=== PATIENT | female | born 1990 | race Caucasian/White ===

== ENCOUNTER 2016-08-10 16:38 | Inpatient (IN) | payer BC ==
[~2016-08-10 16:38] MED LIST: Bupivacaine 0.25% 10 ML SDV ONE
[2016-08-10] MEDS ORDERED: Acetaminophen 325 MG Tab PO PRN (18:12)
[2016-08-10] MEDS ORDERED: Sodium Chloride 0.9% 10 ML Syringe FLUSH PRN (18:12)
[2016-08-10] MEDS ORDERED: Nalbuphine 20 MG/1 ML Amp IVPUSH PRN (18:12)
[2016-08-10] MEDS ORDERED: Ondansetron 4 MG/2 ML SDV IVPUSH PRN ×2 (18:12→23:12)
[2016-08-10] MEDS ORDERED: Penicillin G Potassium 5 MILLUNITS in Sodium Chloride 0.9% 100 ML IV SCH (18:15)
[2016-08-10] MEDS ORDERED: Oxytocin/Lactated Ringers 10 UNIT/1,000 ML BAG IV SCH ×2 (18:15)
--- NOTE | 2016-08-10 18:24 | PCM.LDHP ---
L&D History of Present Illness - General Date of Service: 08/10/16 Admit Problem/Dx: Patient Status Order with Admit Dx/Problem 08/10/16 18:12 Patient Status [ADT] Routine Admission Diagnosis/Problem Admission Diagnosis/Problem Normal Source of Information: Patient History Limitations: Reports: No Limitations - History of Present Illness Introduction:: 26 y/o at 40 2/7 wks presents today for concerns of labor. States that starting yesterday around 2100 had the start of contractions. They have remained every 10 minutes or so in frequency. Rates them at a 5/10. Mostly presented today to see if she is changing her cervix. Denies headaches, vision changes, or RUQ pain. 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 : 2 Para: 0 LMP (Approximate): Social & Family History - Tobacco Use Smoking Status *Q: Never Smoker - Alcohol Use Alcohol Use History: No - Recreational Drug Use Recreational Drug Use: No H&P Review of Systems - Review of Systems: Review Of Systems: See Below General: Reports: No Symptoms Pulmonary: Reports: No Symptoms Cardiovascular: Reports: No Symptoms Gastrointestinal: Reports: No Symptoms Genitourinary: Reports: No Symptoms Musculoskeletal: Reports: No Symptoms Skin: Reports: No Symptoms L&D Exam - Exam Exam: See Below - Vital Signs Weight: 71.259 kg - OB Specific Contraction Intensity: Mild to Moderate Movement: Active Heart Tones: Present Heart Tones per Min: 135 Heart Rate (FHR) Variability: Moderate (6-25 bmp) Presentation: Vertex - Tolentino Score Tolentino Score Cervix Position: Midposition Tolentino Score Consistency: Soft Tolentino Score Effacement: 51-70% Tolentino Score Dilation: 3-4 cm Tolentino Score 's Station: -2 Tolentino Score Total: 8 - Exam General: Alert, Oriented, Cooperative Lungs: Clear to Auscultation, Normal Respiratory Effort Cardiovascular: Regular Rate, Regular Rhythm Abdomen: Soft Genitourinary: Normal external exam Extremities: Normal Inspection Skin: Warm, Dry, Intact - Patient Data Lab Results Last 24 hrs: Laboratory Results - last 24 hr 08/10/16 08/10/16 Range/Units 17:50 17:50 WBC 11.47 H (3.98-10.04) K/mm3 RBC 4.32 (3.98-5.22) M/mm3 Hgb 12.2 (11.2-15.7) gm/L Hct 36.8 (34.1-44.9) % MCV 85.2 (79.4-94.8) fl MCH 28.2 (25.6-32.2) pg MCHC 33.2 (32.2-35.5) g/dl RDW Std Deviation 43.9 (36.4-46.3) fL Plt Count 233 (182-369) K/mm3 MPV 10.0 (9.4-12.3) fl Neut % (Auto) 75.5 H (34.0-71.1) % Lymph % (Auto) 17.3 L (19.3-51.7) % [place] % (Auto) 6.4 (4.7-12.5) % Eos % (Auto) 0.4 L (0.7-5.8) Baso % (Auto) 0.1 (0.1-1.2) % Neut # (Auto) 8.65 H (1.56-6.13) K/mm3 Lymph # (Auto) 1.99 (1.18-3.74) K/mm3 [place] # (Auto) 0.73 H (0.24-0.36) K/mm3 Eos # (Auto) 0.05 (0.04-0.36) K/mm3 Baso # (Auto) 0.01 (0.01-0.08) K/mm3 Creatinine 0.6 (0.55-1.02) mg/dL Est Cr Clr Drug Dosing 131.85 mL/min Estimated GFR (MDRD) > 60 (>60) mL/min AST 19 (15-37) U/L ALT 16 (14-59) U/L Result Diagrams: 08/10/16 17:50 08/10/16 17:50 - Problem List (1) 40 weeks gestation of SNOMED Code(s): 51916178 ICD Code: Z3A.40 - 40 WEEKS GESTATION OF Status: Acute Current Visit: Yes (2) Elevated blood pressure affecting in third trimester, antepartum SNOMED Code(s): 21690642, 43286176, 218638874 ICD Code: O13.3 - GESTATIONAL HTN W/O SIGNIFICANT PROTEINURIA, THIRD TRIMESTER Status: Acute Current Visit: Yes Problem List Initiated/Reviewed/Updated: Yes Orders Last 24hrs: Active Orders 24 hr Category Date Time Status Patient Status [ADT] Routine ADT 08/10/16 18:12 Ordered Activity as Tolerated [RC] PFP Care 08/10/16 18:12 Ordered Communication Order [RC] ASDIRECTED Care 08/10/16 18:12 Ordered Heart Tones [RC] ASDIRECTED Care 08/10/16 18:12 Ordered Notify Provider [RC] PFP Care 08/10/16 18:12 Ordered Notify Provider [RC] PRN Care 08/10/16 18:12 Ordered Peripheral IV Care [RC] . DIRECTED Care 08/10/16 18:12 Ordered Vital Signs [RC] PER UNIT ROUTINE Care 08/10/16 18:12 Ordered TYPE AND SCREEN [BBK] Stat Lab 08/10/16 17:50 Received Acetaminophen [Tylenol] Med 08/10/16 18:12 Ordered 650 mg PO Q4H PRN Lactated Ringers [Ringers, Lactated] 1,000 ml Med 08/10/16 18:15 Ordered IV ASDIRECTED Nalbuphine [Nubain] Med 08/10/16 18:12 Ordered 10 mg IVPUSH Q2H PRN Ondansetron [Zofran] Med 08/10/16 18:12 Ordered 4 mg IVPUSH Q4H PRN Oxytocin/Lactated Ringers [Pitocin in LR 10 Units/1,000 Med 08/10/16 18:15 Ordered ML] 10 unit in 1,000 ml IV TITRATE Oxytocin/Lactated Ringers [Pitocin in LR 10 Units/1,000 Med 08/10/16 18:15 Ordered ML] 10 unit in 1,000 ml IV TITRATE Penicillin G Potassium [Pfizerpen] 2.5 millunits Med 08/10/16 18:15 Ordered Sodium Chloride 0.9% [Normal Saline] 100 ml IV Q4H Penicillin G Potassium [Pfizerpen] 5 millunits Med 08/10/16 18:15 Ordered Sodium Chloride 0.9% [Normal Saline] 100 ml IV ONETIME Sodium Chloride 0.9% [Saline Flush] Med 08/10/16 18:12 Ordered 10 ml FLUSH ASDIRECTED PRN Electronic Heart Tones Ext w TOCO [WOMSER] Oth 08/10/16 18:12 Ordered Routine Electronic Heart Tones Internal [WOMSER] Per Unit Oth 08/10/16 18:12 Ordered Routine Peripheral IV Insertion Adult [OM.PC] Routine Oth 08/10/16 18:12 Ordered Resuscitation Status Routine Resus Stat 08/10/16 18:12 Ordered Assessment/Plan Comment:: 26 y/o at 40 2/7 wks presents with concerns of early labor, found to have elevated BP's in the mild range. Discussed with patient and her needing to stay for IOL due to BP's. Will start with pitocin and then move on to AROM as necessary. AST, ALT, Creatinine, CBC, and UA ordered. Will monitor for signs of worsening disease. GBS positive, will start PCN. Pain management per patient preference. Anticipate
[2016-08-10] MEDS: Lactated Ringers 1,000 ML IV SCH (18:50)
[2016-08-10] MEDS ORDERED: Calcium Gluconate 10% 1 GM/10 ML SDV IV PRN (20:23)
[2016-08-10] MEDS ORDERED: ePHEDrine 50 MG/ML SDV IVPUSH PRN (23:12)
[2016-08-10] MEDS ORDERED: fentaNYL 100 MCG/2 ML SDV EPIDUR PRN (23:12)
[2016-08-10] MEDS: Penicillin G Potassium 2.5 MILLUNITS in Sodium Chloride 0.9% 100 ML IV SCH (23:12)
[2016-08-10] MEDS ORDERED: Bupivacaine/fentaNYL/NS 100 ML Bag EPIDUR SCH (23:15)
--- NOTE | 2016-08-10 23:31 | PCM.PREANE ---
Preanesthetic Assessment - Anesthesia/Transfusion/Family Hx Anesthesia History: No Prior Anesthesia Family History of Anesthesia Reaction: No Transfusion History: No Prior Transfusion(s) Intubation History: Unknown - Review of Systems General: No Symptoms Pulmonary: No Symptoms Cardiovascular: No Symptoms Gastrointestinal: No symptoms Neurological: No Symptoms Other: Reports: None - Physical Assessment NPO Status Date: 08/10/16 NPO Status Time: 19:30 Pulse: 77 O2 Sat by Pulse Oximetry: 100 Respiratory Rate: 17 Blood Pressure: 141/86 Temperature: 2.9 C Vital Signs: Last Vital Signs Temp 37.2 C 08/10/16 18:12 Pulse 77 08/10/16 18:12 Resp 17 08/10/16 18:12 BP 141/86 H 08/10/16 18:12 Pulse Ox 100 08/10/16 18:12 Height: 1.68 m Weight: 71.259 kg ASA Class: 2 Mental Status: Alert & Oriented x3 Airway Class: Mallampati = 2 Dentition: Reports: Normal Dentition, Caries Thyro-Mental Finger Breadths: 3 Mouth Opening Finger Breadths: 3 ROM/Head Extension: Full Lungs: Clear to auscultation, Normal respiratory effort Cardiovascular: Regular Rate, Regular Rhythm, No Murmurs - Lab Values: Laboratory Last Values WBC 11.47 K/mm3 (3.98-10.04) H 08/10/16 17:50 RBC 4.32 M/mm3 (3.98-5.22) 08/10/16 17:50 Hgb 12.2 gm/L (11.2-15.7) 08/10/16 17:50 Hct 36.8 % (34.1-44.9) 08/10/16 17:50 MCV 85.2 fl (79.4-94.8) 08/10/16 17:50 MCH 28.2 pg (25.6-32.2) 08/10/16 17:50 MCHC 33.2 g/dl (32.2-35.5) 08/10/16 17:50 RDW Std Deviation 43.9 fL (36.4-46.3) 08/10/16 17:50 Plt Count 233 K/mm3 (182-369) 08/10/16 17:50 MPV 10.0 fl (9.4-12.3) 08/10/16 17:50 Neut % (Auto) 75.5 % (34.0-71.1) H 08/10/16 17:50 Lymph % (Auto) 17.3 % (19.3-51.7) L 08/10/16 17:50 [place] % (Auto) 6.4 % (4.7-12.5) 08/10/16 17:50 Eos % (Auto) 0.4 (0.7-5.8) L 08/10/16 17:50 Baso % (Auto) 0.1 % (0.1-1.2) 08/10/16 17:50 Neut # (Auto) 8.65 K/mm3 (1.56-6.13) H 08/10/16 17:50 Lymph # (Auto) 1.99 K/mm3 (1.18-3.74) 08/10/16 17:50 [place] # (Auto) 0.73 K/mm3 (0.24-0.36) H 08/10/16 17:50 Eos # (Auto) 0.05 K/mm3 (0.04-0.36) 08/10/16 17:50 Baso # (Auto) 0.01 K/mm3 (0.01-0.08) 08/10/16 17:50 Creatinine 0.6 mg/dL (0.55-1.02) 08/10/16 17:50 Est Cr Clr Drug Dosing 131.85 mL/min 08/10/16 17:50 Estimated GFR (MDRD) > 60 mL/min (>60) 08/10/16 17:50 AST 19 U/L (15-37) 08/10/16 17:50 ALT 16 U/L (14-59) 08/10/16 17:50 Urine Color Yellow (Yellow) 08/10/16 21:10 Urine Appearance Clear (Clear) 08/10/16 21:10 Urine pH 6.0 (5.0-8.0) 08/10/16 21:10 Ur Specific [place] 1.025 (1.005-1.030) 08/10/16 21:10 Urine Protein Trace (Negative) H 08/10/16 21:10 Urine Glucose (UA) Negative (Negative) 08/10/16 21:10 Urine Ketones 2+ (Negative) H 08/10/16 21:10 Urine Occult Blood 3+ (Negative) H 08/10/16 21:10 Urine Nitrite Negative (Negative) 08/10/16 21:10 Urine Bilirubin Negative (Negative) 08/10/16 21:10 Urine Urobilinogen 0.2 (0.2-1.0) 08/10/16 21:10 Ur Leukocyte Esterase 1+ (Negative) H 08/10/16 21:10 Urine RBC 10-20 /hpf (0-5) H 08/10/16 21:10 Urine WBC 5-10 /hpf (0-5) H 08/10/16 21:10 Ur Epithelial Cells Not Reportable 08/10/16 21:10 Ur Squamous Epith Cells 0-5 /hpf (0-5) 08/10/16 21:10 Urine Bacteria Few /hpf (FEW) 08/10/16 21:10 Urine Mucus Few /hpf (FEW) 08/10/16 21:10 Blood Type B POSITIVE 08/10/16 17:50 Gel Antibody Screen Negative 08/10/16 17:50 Above labs reviewed and noted. 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 - SUBSTANCE USE Smoking Status *Q: Never Smoker Recreational Drug Use History: No - HOME MEDS Home Medications: Home Meds Vit W-Ca,Fe,FA(<1 mg) [ Vitamins] 1 tab PO DAILY 08/10/16 [ History] - CURRENT (IN HOUSE) MEDS Current Meds: Current Medications Acetaminophen (Tylenol) 650 mg PO Q4H PRN PRN Reason: Pain (Mild 1-3) and fever Calcium Gluconate (Calcium Gluconate) 1 gm IV ASDIRECTED PRN PRN Reason: respiratory distress Ephedrine Sulfate (Ephedrine Sulfate) 5 mg IVPUSH ASDIRECTED PRN PRN Reason: Hypotension Fentanyl (Sublimaze) 100 mcg EPIDUR Q3H PRN PRN Reason: Pain Fentanyl/Bupivacaine HCl (Fentanyl/Bupivacaine/Ns 2 Mcg-0.125% 100 Ml) 100 ml EPIDUR ASDIRECTED RICK Lactated Ringer's (Ringers, Lactated) 1,000 mls @ 100 mls/hr IV ASDIRECTED RICK Last Admin: 08/10/16 18:50 Dose: 100 mls/hr Oxytocin/Lactated Ringer's (Pitocin In Lr 10 Units/1,000 Ml) 10 unit in 1,000 mls @ 500 mls/hr IV TITRATE RICK PRN Reason: Protocol Oxytocin/Lactated Ringer's (Pitocin In Lr 10 Units/1,000 Ml) 10 unit in 1,000 mls @ 12 mls/hr IV TITRATE RICK; 2 MUNITS/MIN PRN Reason: Protocol Last Titration: 08/10/16 23:13 Dose: 0 munits/min, 0 mls/hr Penicillin G Potassium 5 (millunits/ Sodium Chloride) 100 mls @ 55 mls/hr IV ONETIME [facility] Last Admin: 08/10/16 18:55 Dose: 55 mls/hr Penicillin G Potassium 2.5 (millunits/ Sodium Chloride) 100 mls @ 55 mls/hr IV Q4H RICK Last Admin: 08/10/16 23:12 Dose: 55 mls/hr Nalbuphine HCl (Nubain) 10 mg IVPUSH Q2H PRN PRN Reason: Pain (moderate 4-6) Ondansetron HCl (Zofran) 4 mg IVPUSH Q4H PRN PRN Reason: Nausea/Vomiting Ondansetron HCl (Zofran) 4 mg IVPUSH ONETIME PRN PRN Reason: Nausea/Vomiting Sodium Chloride (Saline Flush) 10 ml FLUSH ASDIRECTED PRN PRN Reason: Keep Vein Open
[2016-08-11] MEDS: Lactated Ringers 1,000 ML IV SCH ×2 (01:15→04:59)
[2016-08-11] MEDS: Penicillin G Potassium 2.5 MILLUNITS in Sodium Chloride 0.9% 100 ML IV SCH ×4 (04:29→14:37)
[2016-08-11] MEDS ORDERED: Lidocaine 1% 50 ML MDV ONE (08:48)
[2016-08-11] MEDS ORDERED: Lidocaine 1% 50 ML MDV INJECT PRN (08:48)
[2016-08-11] MEDS ORDERED: Benzocaine/Menthol 20%-0.5% Spray 56 GM Canister TOP PRN ×2 (11:11→14:23)
[2016-08-11] MEDS ORDERED: Witch Hazel Medicated Pads 100/Jar TOP PRN ×2 (11:11→14:23)
--- NOTE | 2016-08-11 13:25 | PCM.SN ---
- Free Text/Narrative Note: Suma delivered a viable 3510 gram (7# 11.8 oz) female with apgars of 8/9 , length of 21.5 inches in a persistant LOP position with vacuum extraction. Midline episiotomy was performed, but no extensions occurred. Lidocaine 1%-10 cc was injected for anesthesia. The episiotomy was repaired with 3-0 monocryl in a routine fashion. Placenta delivered in a matilde fashion, was complete and had a 3 vessel cord. Pitocin was adminstered after delivery of the baby. Placenta was discarded. Patient plans to nurse. Conditon: good. EBL: 100cc
[2016-08-11] MEDS ORDERED: Hydrocortisone Acetate 25 MG Supp RECTAL PRN (14:23)
[2016-08-11] MEDS ORDERED: Lanolin 100% Cream 7 GM Tube TOP PRN (14:23)
[2016-08-11] MEDS ORDERED: Acetaminophen 325 MG Tab PO PRN (14:23)
[2016-08-11] MEDS ORDERED: Docusate Sodium 100 MG Cap PO PRN (14:23)
[2016-08-11] MEDS: Ibuprofen 600 MG Tab PO PRN (20:02)
--- NOTE | 2016-08-12 08:10 | PCM48HPAN ---
Post Anesthesia Note - EVALUATION WITHIN 48HRS OF ANESTHETIC Vital Signs in Normal Range: Yes Patient Participated in Evaluation: Yes Respiratory Function Stable: Yes Airway Patent: Yes Cardiovascular Function Stable: Yes Hydration Status Stable: Yes Pain Control Satisfactory: Yes Nausea and Vomiting Control Satisfactory: Yes Mental Status Recovered: Yes
--- NOTE | 2016-08-12 09:25 | PCM.DCSUM1 ---
Discharge Summary - Hospital Course Free Text/Narrative:: Suma delivered a viable 3510 gram (7# 11.8 oz) female with apgars of 8/9 , length of 21.5 inches in a persistant LOP position with vacuum extraction. Midline episiotomy was performed, but no extensions occurred. Lidocaine 1%-10 cc was injected for anesthesia. The episiotomy was repaired with 3-0 monocryl in a routine fashion. Placenta delivered in a matilde fashion, was complete and had a 3 vessel cord. Pitocin was adminstered after delivery of the baby. Placenta was discarded. Patient plans to nurse. Conditon: good. EBL: 100cc patient is done well. She is nursing with a breast shield. This is somewhat challenging for her but she is doing well. She is invested in this. She is ambulating well, has no complaints and has only minimal lochia. Her vital signs and stable and she is afebrile. CBC is within normal limits. Patient is desiring discharge home. - Discharge Data Discharge Date: 08/12/16 Discharge Disposition: Home, Self-Care 01 Condition: Good - Patient Instructions Diet: Regular Diet as Tolerated (Nursing diet was increased calcium and calories as recommended) Activity: As Tolerated (With the exception no intercourse or tampons until bleeding resolves) Driving: May Drive Today Showering/Bathing: May Shower (May take a bath) Notify Provider of: Fever, Increased Pain, Swelling and Redness, Nausea and/or Vomiting - Discharge Plan Home Medications: Home Meds Vit W-Ca,Fe,FA(<1 mg) [ Vitamins] 1 tab PO DAILY 08/10/16 [ History] Ibuprofen [IJD: Ibuprofen] 600 mg PO Q4H PRN #30 tablet 08/12/16 [Rx] Referrals: Denys Ahuja MD [Primary Care Provider] - [facility] - Discharge Summary/Plan Comment DC Time >30 min.: No Discharge Summary/Plan Comment: Discharge instructions: 1. Discharge home 2. Regular, high fiber, nursing diet was increased calcium and calories as directed. 3. Precautions given concern increased pain, bleeding, temperature, signs/ symptoms of DVT/PE 4. Medications per medication was printed, discussed with and given to the patient. 5. Return to clinic-Dr. Ahuja-[facility]-6 weeks-[place] Diagnosis: Term -delivered Condition: Good - Patient Data Vitals - Most Recent: Last Vital Signs Temp 36.9 C 08/11/16 19:45 Pulse 84 08/12/16 04:00 Resp 18 08/12/16 04:00 BP 96/59 L 08/12/16 04:00 Pulse Ox 100 08/12/16 04:00 Weight - Most Recent: 71.259 kg Med Orders - Current: Current Medications Acetaminophen (Tylenol) 650 mg PO Q4H PRN PRN Reason: mild pain or fever Benzocaine/Menthol (Dermoplast Pain Relief [place]) 0 gm TOP ASDIRECTED PRN PRN Reason: Perineal Comfort Measure Docusate Sodium (Colace) 100 mg PO BID PRN PRN Reason: Constipation Emollient Ointment (Lansinoh Hpa) 0 gm TOP ASDIRECTED PRN PRN Reason: Sore Nipples Hydrocortisone Acetate (Anucort-Hc) 25 mg RECTAL BID PRN PRN Reason: Hemorrhoid pain Ibuprofen (Motrin) 600 mg PO Q4H PRN PRN Reason: Mild pain or fever Last Admin: 08/11/16 20:02 Dose: 600 mg [place] (Tucks) 1 pad TOP ASDIRECTED PRN PRN Reason: Hemorrhoid pain Discontinued Medications Acetaminophen (Tylenol) 650 mg PO Q4H PRN PRN Reason: Pain (Mild 1-3) and fever Benzocaine/Menthol (Dermoplast Pain Relief [place]) 0 gm TOP ASDIRECTED PRN PRN Reason: perineal pain Bupivacaine HCl (Sensorcaine-Mpf 0.25%) 10 ml .ROUTE .STK-MED ONE Stop: 08/10/16 14:24 Calcium Gluconate (Calcium Gluconate) 1 gm IV ASDIRECTED PRN PRN Reason: respiratory distress Ephedrine Sulfate (Ephedrine Sulfate) 5 mg IVPUSH ASDIRECTED PRN PRN Reason: Hypotension Fentanyl (Sublimaze) 100 mcg EPIDUR Q3H PRN PRN Reason: Pain Last Admin: 08/11/16 00:01 Dose: 100 mcg Fentanyl/Bupivacaine HCl (Fentanyl/Bupivacaine/Ns 2 Mcg-0.125% 100 Ml) 100 ml EPIDUR ASDIRECTED RICK Last Admin: 08/11/16 00:01 Dose: 100 ml Lactated Ringer's (Ringers, Lactated) 1,000 mls @ 100 mls/hr IV ASDIRECTED RICK Last Admin: 08/11/16 04:59 Dose: 100 mls/hr Oxytocin/Lactated Ringer's (Pitocin In Lr 10 Units/1,000 Ml) 10 unit in 1,000 mls @ 500 mls/hr IV TITRATE RICK PRN Reason: Protocol Oxytocin/Lactated Ringer's (Pitocin In Lr 10 Units/1,000 Ml) 10 unit in 1,000 mls @ 12 mls/hr IV TITRATE RICK; 2 MUNITS/MIN PRN Reason: Protocol Last Titration: 08/11/16 08:35 Dose: 1 munits/min, 6 mls/hr Penicillin G Potassium 5 (millunits/ Sodium Chloride) 100 mls @ 55 mls/hr IV ONETIME RICK Last Admin: 08/10/16 18:55 Dose: 55 mls/hr Penicillin G Potassium 2.5 (millunits/ Sodium Chloride) 100 mls @ 55 mls/hr IV Q4H RICK Last Admin: 08/11/16 14:37 Dose: Not Given Lidocaine HCl (Xylocaine 1%) Confirm Administered Dose 50 ml .ROUTE .[facility] ONE Stop: 08/11/16 08:49 Last Admin: 08/11/16 10:48 Dose: Not Given Lidocaine HCl (Xylocaine 1%) 50 ml INJECT ONETIME PRN PRN Reason: perineal pain Last Admin: 08/11/16 09:00 Dose: 50 ml Nalbuphine HCl (Nubain) 10 mg IVPUSH Q2H PRN PRN Reason: Pain (moderate 4-6) Ondansetron HCl (Zofran) 4 mg IVPUSH Q4H PRN PRN Reason: Nausea/Vomiting Ondansetron HCl (Zofran) 4 mg IVPUSH ONETIME PRN PRN Reason: Nausea/Vomiting Sodium Chloride (Saline Flush) 10 ml FLUSH ASDIRECTED PRN PRN Reason: Keep Vein Open [place] (Tucks) 1 pad TOP ASDIRECTED PRN PRN Reason: perineal pain *Q Meaningful Use (DIS) - VTE *Q VTE Criteria *Q: - Stroke *Q Stroke Criteria *Q: - AMI *Q AMI Criteria *Q:
[2016-08-12] MEDS: Ibuprofen 600 MG Tab PO PRN (09:40)
[2016-08-12 11:17] VITALS: BP 110/62
== END 2016-08-12 15:00 | disposition home or self-care (01) | DRG 560 ==
LOC: JD.OBCHECK 16:38 → JD.OB 18:12 → OBSVTOIN 08-11 09:02
PROVIDERS: ADMIT Obstetrics & Gynecology; ATTEND Obstetrics & Gynecology
PROC: 0W8NXZZ Division of Female Perineum, External Approach (ICD-10-PCS; principal; 2016-08-11)
PROC: 10D07Z6 Extraction of Products of Conception, Vacuum, Via Natural or Artificial Opening (ICD-10-PCS; principal; 2016-08-11)
PROC: 3E0R3CZ (ICD-10-PCS; 2016-08-11)
DX: O99.824 Streptococcus B carrier state complicating childbirth (principal); O13.3 Gestational [pregnancy-induced] hypertension without significant proteinuria, third trimester; Z3A.40 40 weeks gestation of pregnancy; Z37.0 Single live birth
CPT/HCPCS: 36415; 81001; 82565; 84450; 84460; 85025; 85027; 86850; 86900; 86901; A9270-GY; J2540; J2590; J3010; J7030; J7120

== ENCOUNTER 2018-07-05 03:58 | Inpatient (IN) | payer BC ==
[2018-07-05] MEDS ORDERED: Sodium Chloride 0.9% 10 ML Syringe FLUSH PRN (19:19)
[2018-07-05] MEDS ORDERED: Nalbuphine 20 MG/ML 1 ML Syringe IVPUSH PRN (19:19)
[2018-07-05] MEDS ORDERED: Ondansetron 4 MG/2 ML SDV IVPUSH PRN (19:19)
[2018-07-05] MEDS ORDERED: Oxytocin/Lactated Ringers 10 UNIT/1,000 ML BAG IV SCH ×2 (19:30)
--- NOTE | 2018-07-05 21:06 | PCM.LDHP ---
L&D History of Present Illness - General Date of Service: 07/05/18 Admit Problem/Dx: Patient Status Order with Admit Dx/Problem 07/05/18 19:19 Patient Status [ADT] Routine Admission Diagnosis/Problem Admission Diagnosis/Problem 07/05/18 20:54 Suma is a 28-year-old 3 para 1011 white female was admitted for medical induction of labor for transient hypertension in . She is 38-3/7 weeks gestational age as determined by certain last menstrual period started 2017 and supported by 3 other ultrasounds done on 01/07/2018 03/04/2018 and 2018. Source of Information: Patient History Limitations: Reports: No Limitations - History of Present Illness Introduction:: Suma is a 28-year-old 3 para 1011 white female was admitted for medical induction of labor for transient hypertension in . She is 38-3/7 weeks gestational age as determined by certain last menstrual period started 2017 and supported by 3 other ultrasounds done on 01/07/2018 03/04/2018 and 2018.She's been seen on a regular basis during the course of in the last 2 visits patient has had blood pressures in the 140s to 150s over 80-90 range. She is monitored them at home and reports that they've been upper limits normal. She, however, in clinic has been noted to have elevated blood pressures. Her preeclampsia workup has been unremarkable. The procedure of induction of labor, its risks, benefits and alternatives along with follow-up were discussed in detail patient. She appears understand and wishes to proceed. 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 CARRIE 07/16/2018 by LMP starting 10/09/2017. Patient had menarche at age 11. Cycles every 28 days. No control time conception. Last period was definite. Her first 2 pregnancies included the followin. Miscarriage, first trimester, 07/25/2015. Female infant born 08/11/2016 at 40-3/7 weeks gestational age. 24-hour labor. Epidural used. Baby's name is Jorge Luis De León This patient was seen early at 12 weeks gestational age. She was seen on a regular basis. Her weight gain was from 125-150 pounds. Fundal height growth was at appropriate. Patient had no concerns throughout the . Her 1 hour glucose tolerance test was 131. She declined genetic testing. She declined [place] testing. Echogenic intracardiac focus of ultrasound was noted. [place] depression screening score on 03/10/2018 was 0/ 30. Group B strep negative. Plans to breast-feed. T Dap was given on 05/13/2018. Laboratory testing and shows blood to be positive. Antibody screen is negative. First trimester hemoglobin was 13.6 g/dL. Eyelids are 267,000. She is rubella immune. RPR is nonreactive. Urine culture was essentially negative. Hepatitis B surface antigen and HIV assays were both negative. Chlamydia and gonorrhea tests were both negative. Cystic fibrosis screen on 01/15/2016 was negative. Second trimester labs showed hemoglobin of 11.2 g/dL. Her platelets are 253,001 hour GTT. On 06/24/2018 hemoglobin 11.4 RPR 04/08/2018. Again was nonreactive. Group B strep screen was negative. Allergies: none Medications: vitamins 1 daily Past medical history: 1. Miscarriage first trimester 2. Normal spontaneous vaginal delivery 08/11/2016 Past surgical history: Unremarkable Family history: Mother is alive and well. Father is alive and well. 2 brothers 1 sister alive and well. Maternal grandmother and grandfather both alive and well. Maternal grandmother alive with history of breast cancer paternal grandfather secondary to CHF. No bleeding or blood clotting abnormalities noted found. No anesthesia problems noted. 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 She does not use any significant muscle L call, drugs or tobacco. 's name is Milind Keith Review of systems: In general patient has no complaints. Baby has been active. No significant contractions reported. Skin: Negative Lungs: No infectious symptoms or shortness of breath Cardiovascular: No chest pain or exercise intolerance Breasts: No lumps, changes in size, pain, dimpling, discharge or axillary or supraclavicular concerns. GI: Negative : Changes associated Musculoskeletal: Negative Neurological: Negative On physical exam last visit in clinic her blood pressure is 150/82, 146/80, 132/ 74. Weight was 150 pounds. heart rate was 136. Height is 5 feet. Pregravid weight was 125. Pre- BMI was 20.2. In general the patient is well-developed, well-nourished, pleasant female of stated age in no acute distress. Skin is warm dry without lesions. HEENT, neck and back within normal limits. Lungs are clear with good breath sounds in all lung nix. Cardiovascular exam shows regular and rhythm without murmurs. Breast exam deferred Abdomen is gravid. Last fundal height clinic was 37 cm. Baby in vertex presentation Genital per bimanual shows normal external genitalia, BUS, pubic hair pattern. There is normal support, secretions and estrogenization vagina. Cervix was 2+ centimeters, 80% effaced, very soft, mid position to mildly posterior position, -3 station, cephalic presentation. Extremities and neurological exam are grossly within normal limits. 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 - Infectious Disease History Infectious Disease History: Reports: Chicken Pox Social & Family History - Family History Family Medical History: Noncontributory - Tobacco Use Smoking Status *Q: Never Smoker - Caffeine Use Caffeine Use: Reports: None - Recreational Drug Use Recreational Drug Use: No H&P Review of Systems - Review of Systems: Review Of Systems: See Below L&D Exam - Exam Exam: See Below - Vital Signs Vital Signs: Last Vital Signs Temp 36.8 C 07/05/18 19:11 Pulse 81 07/05/18 19:11 Resp 18 07/05/18 19:11 BP 125/83 07/05/18 19:11 Pulse Ox Weight: 68.674 kg - Patient Data Lab Results Last 24 hrs: Laboratory Results - last 24 hr 07/05/18 Range/Units 19:34 WBC 9.60 (3.98-10.04) K/mm3 RBC 4.02 (3.98-5.22) M/mm3 Hgb 10.9 L (11.2-15.7) gm/L Hct 33.8 L (34.1-44.9) % MCV 84.1 (79.4-94.8) fl MCH 27.1 (25.6-32.2) pg MCHC 32.2 (32.2-35.5) g/dl RDW Std Deviation 43.2 (36.4-46.3) fL Plt Count 246 (182-369) K/mm3 MPV 10.0 (9.4-12.3) fl Result Diagrams: 07/05/18 19:34 Problem List Initiated/Reviewed/Updated: Yes Orders Last 24hrs: Active Orders 24 hr Category Date Time Status Patient Status [ADT] Routine ADT 07/05/18 19:19 Active Activity as Tolerated [RC] PFP Care 07/05/18 19:19 Active Communication Order [RC] ASDIRECTED Care 07/05/18 19:19 Active Heart Tones [RC] ASDIRECTED Care 07/05/18 19:19 Active Non Stress Test [RC] PER UNIT ROUTINE Care 07/05/18 19:19 Active Notify Provider [RC] PFP Care 07/05/18 19:19 Active Notify Provider [RC] PRN Care 07/05/18 19:19 Active Peripheral IV Care [RC] . DIRECTED Care 07/05/18 19:19 Active Vital Signs [RC] PER UNIT ROUTINE Care 07/05/18 19:19 Active Regular Diet [DIET] Diet 07/05/18 Breakfast Active RAPID PLASMA REAGIN,RPR [CHEM] Routine Lab 07/05/18 19:34 Received Lactated Ringers [Ringers, Lactated] 1,000 ml Med 07/05/18 19:30 Active IV ASDIRECTED Nalbuphine [Nubain] Med 07/05/18 19:19 Active 10 mg IVPUSH Q2H PRN Ondansetron [Zofran] Med 07/05/18 19:19 Active 4 mg IVPUSH Q4H PRN Oxytocin/Lactated Ringers [Pitocin in LR 10 Units/1,000 Med 07/05/18 19:30 Active ML] 10 unit in 1,000 ml IV .CONTINUOUS Oxytocin/Lactated Ringers [Pitocin in LR 10 Units/1,000 Med 07/05/18 19:30 Active ML] 10 unit in 1,000 ml IV TITRATE Sodium Chloride 0.9% [Saline Flush] Med 07/05/18 19:19 Active 10 ml FLUSH ASDIRECTED PRN Electronic Heart Tones Ext w TOCO [WOMSER] Ot 07/05/18 19:19 Ordered Routine Electronic Heart Tones Internal [WOMSER] Per Unit Ot 07/05/18 19:19 Ordered Routine Peripheral IV Insertion Adult [OM.PC] Routine Oth 07/05/18 19:19 Ordered Resuscitation Status Routine Resus Stat 07/05/18 19:19 Ordered Medication Orders Lactated Ringer's (Ringers, Lactated) 1,000 mls @ 100 mls/hr IV ASDIRECTED RICK Oxytocin/Lactated Ringer's (Pitocin In Lr 10 Units/1,000 Ml) 10 unit in 1,000 mls @ 12 mls/hr IV TITRATE RICK; Protocol Oxytocin/Lactated Ringer's (Pitocin In Lr 10 Units/1,000 Ml) 10 unit in 1,000 mls @ 500 mls/hr IV .CONTINUOUS RICK Nalbuphine HCl (Nubain) 10 mg IVPUSH Q2H PRN PRN Reason: pain Ondansetron HCl (Zofran) 4 mg IVPUSH Q4H PRN PRN Reason: Nausea/Vomiting Sodium Chloride (Saline Flush) 10 ml FLUSH ASDIRECTED PRN PRN Reason: Keep Vein Open Assessment/Plan Comment:: 1. 30-3/7 week intrauterine , transient hypertension in versus gestational hypertension. Patient admitted for medical induction of labor. 2. Group B strep screen was negative. 3. T dap has been given. 4. Patient plans to breast-feed. 5. Epidural for labor and analgesia. 6. Only risk factors include echogenic focus within the heart and history of miscarriagepatient declined [place] testing 7. Patient is rubella immune and has had her T dap immunization 8. Previously done cystic fibrosis screen (2015) was negative Plan: 1. AROM/Pitocin induction of labor. 2. Epidural when necessary for pain 3. RPR and CBC upon admission 4. Patient plans to breast-feedsupport this decision
[2018-07-05] MEDS: Lactated Ringers 1,000 ML IV SCH (21:40)
[2018-07-05] MEDS ORDERED: Bupivacaine 0.25% 10 ML SDV ONE (22:00)
[2018-07-06] MEDS ORDERED: ePHEDrine 50 MG/ML SDV IVPUSH PRN (00:20)
[2018-07-06] MEDS ORDERED: diphenhydrAMINE 50 MG/ML SDV IVPUSH PRN (00:20)
[2018-07-06] MEDS ORDERED: fentaNYL 100 MCG/2 ML SDV IVPUSH ONE (00:28)
[2018-07-06] MEDS ORDERED: Bupivacaine/fentaNYL/NS 100 ML Bag EPIDUR SCH (00:30)
[2018-07-06] MEDS: Lactated Ringers 1,000 ML IV SCH ×2 (00:46→02:16)
--- NOTE | 2018-07-06 01:11 | PCM.PREANE ---
Preanesthetic Assessment - Anesthesia/Transfusion/Family Hx Anesthesia History: Prior Anesthesia Without Reaction Family History of Anesthesia Reaction: No Transfusion History: No Prior Transfusion(s) Intubation History: Unknown - Review of Systems General: No Symptoms Pulmonary: No Symptoms Cardiovascular: No Symptoms Gastrointestinal: No Symptoms Neurological: No Symptoms Other: Reports: None - Physical Assessment Respiratory Rate: 18 Vital Signs: Last Vital Signs Temp 36.8 C 07/05/18 19:11 Pulse 81 07/05/18 19:11 Resp 18 07/05/18 19:11 BP 125/83 07/05/18 19:11 Pulse Ox Height: 1.68 m Weight: 68.674 kg ASA Class: 1E Mental Status: Alert & Oriented x3 Airway Class: Mallampati = 1 Dentition: Reports: Normal Dentition ROM/Head Extension: Full Lungs: Clear to Auscultation, Normal Respiratory Effort Cardiovascular: Regular Rate, Regular Rhythm, No Murmurs - Lab Values: Laboratory Last Values WBC 9.60 K/mm3 (3.98-10.04) 07/05/18 19:34 RBC 4.02 M/mm3 (3.98-5.22) 07/05/18 19:34 Hgb 10.9 gm/L (11.2-15.7) L 07/05/18 19:34 Hct 33.8 % (34.1-44.9) L 07/05/18 19:34 MCV 84.1 fl (79.4-94.8) 07/05/18 19:34 MCH 27.1 pg (25.6-32.2) 07/05/18 19:34 MCHC 32.2 g/dl (32.2-35.5) 07/05/18 19:34 RDW Std Deviation 43.2 fL (36.4-46.3) 07/05/18 19:34 Plt Count 246 K/mm3 (182-369) 07/05/18 19:34 MPV 10.0 fl (9.4-12.3) 07/05/18 19:34 - Allergies Allergies/Adverse Reactions: Allergies Allergy/AdvReac Type Severity Reaction Status Date / Time No Known Allergies Allergy Verified 07/05/18 20:10 - Anesthesia Plan Pre-Op Medication Ordered: None - Acknowledgements Anesthesia Type Planned: Epidural Pt an Appropriate Candidate for the Planned Anesthesia: Yes Alternatives and Risks of Anesthesia Discussed w Pt/Guardian: Yes Pt/Guardian Understands and Agrees with Anesthesia Plan: Yes PreAnesthesia Questionnaire - Past Health History Medical/Surgical History: Denies 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: , 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 - Infectious Disease History Infectious Disease History: Reports: Chicken Pox - SUBSTANCE USE Smoking Status *Q: Never Smoker Recreational Drug Use History: No - HOME MEDS Home Medications: Home Meds Vit Calc,Iron,Folic [ Vitamins] 1 tab PO DAILY 08/10/16 [ History] - CURRENT (IN HOUSE) MEDS Current Meds: Current Medications Diphenhydramine HCl (Benadryl) 25 mg IVPUSH Q6H PRN PRN Reason: Pruritis Ephedrine Sulfate (Ephedrine Sulfate) 5 mg IVPUSH ONETIME PRN PRN Reason: Hypotension Fentanyl/Bupivacaine HCl (Fentanyl/Bupivacaine/Ns 2 Mcg-0.125% 100 Ml) 100 ml EPIDUR ASDIRECTED RICK Lactated Ringer's (Ringers, Lactated) 1,000 mls @ 100 mls/hr IV ASDIRECTED RICK Last Admin: 07/06/18 00:46 Dose: 100 mls/hr Oxytocin/Lactated Ringer's (Pitocin In Lr 10 Units/1,000 Ml) 10 unit in 1,000 mls @ 12 mls/hr IV TITRATE RICK; Protocol Last Titration: 07/05/18 23:54 Dose: 8 munits/min, 48 mls/hr Oxytocin/Lactated Ringer's (Pitocin In Lr 10 Units/1,000 Ml) 10 unit in 1,000 mls @ 500 mls/hr IV .CONTINUOUS RICK Nalbuphine HCl (Nubain) 10 mg IVPUSH Q2H PRN PRN Reason: pain Ondansetron HCl (Zofran) 4 mg IVPUSH Q4H PRN PRN Reason: Nausea/Vomiting Sodium Chloride (Saline Flush) 10 ml FLUSH ASDIRECTED PRN PRN Reason: Keep Vein Open Discontinued Medications Fentanyl (Sublimaze) 100 mcg IVPUSH ONETIME ONE Stop: 07/06/18 00:29
--- NOTE | 2018-07-06 01:12 | PCM.POSTAN ---
POST ANESTHESIA ASSESSMENT - MENTAL STATUS Mental Status: Alert - RESPIRATORY Respiratory Status: Respiratory Rate WNL, Airway Patent - CARDIOVASCULAR CV Status: Pulse Rate WNL, Blood Pressure Stable - GASTROINTESTINAL GI Status: No Symptoms - POST OP HYDRATION Hydration Status: Adequate & Stable
--- NOTE | 2018-07-06 04:27 | PCM.SN ---
- Free Text/Narrative Note: Suma is a 28-year-old 3 now para 2012 white female who was admitted on the evening of 07/06/2018 at 38-3/7 weeks gestational age for hypertension in . She underwent medical induction for this. She did have an elevated blood pressures on last 2 evaluations in clinic in the 150s over 80s to 90s range. Decision was made to proceed with medical induction to effect delivery. Induction consisted of artificial rupture membranes with Pitocin augmentation added later. Patient made good progress at approximately 0100 hrs. had an epidural placed for analgesia. She progressed to complete cervical dilation by approximately 0340 hrs. on 07/06/2018. 2 contractions delivered a viable, grimes, male in a left occiput anterior position. The baby weighed 3203 g (7 pounds 1.9 ounces), had Apgars of 8 and 9 and length of 20.0 inches. There was nuchal cord 1 which was reduced easily over the baby's head. Dose was started immediately after the baby's head delivered and run at 500 mL per hour. This to facilitate increase uterine tone and decrease likelihood of bleeding. The cord blood was obtained. The Umbilical cord had 3 vessels The placenta delivered in a Florez presentation, appeared intact and complete and was discarded per patient desire. The Patient had a first-degree perineal laceration which was repaired with 3-0 Monocryl in a routine fashion. Epidural analgesia was used for anesthesia for the repair. Estimated blood loss was 100 mL. Patient plans to breast-feed. Condition: Good
[2018-07-06] MEDS ORDERED: Witch Hazel Medicated Pads 40/Jar TOP PRN (04:33)
[2018-07-06] MEDS ORDERED: Docusate Sodium 100 MG Cap PO PRN (04:33)
[2018-07-06] MEDS ORDERED: Lanolin 100% Cream 7 GM Tube TOP PRN (04:33)
[2018-07-06] MEDS ORDERED: Benzocaine/Menthol 20%-0.5% Spray 56 GM Canister TOP PRN (04:33)
[2018-07-06] MEDS ORDERED: Acetaminophen 325 MG Tab PO PRN (04:33)
--- NOTE | 2018-07-06 09:32 | PCM48HPAN ---
Post Anesthesia Note - EVALUATION WITHIN 48HRS OF ANESTHETIC Patient Participated in Evaluation: Yes Respiratory Function Stable: Yes Airway Patent: Yes Cardiovascular Function Stable: Yes Hydration Status Stable: Yes Pain Control Satisfactory: Yes Nausea and Vomiting Control Satisfactory: Yes Mental Status Recovered: Yes Resp Rate: 18
[2018-07-06] MEDS: Ibuprofen 600 MG Tab PO PRN (12:05)
[2018-07-07] MEDS: Ibuprofen 600 MG Tab PO PRN (01:03)
--- NOTE | 2018-07-07 07:27 | PCM.DCSUM1 ---
Discharge Summary - Hospital Course Free Text/Narrative:: Suma is a 28-year-old 3 now para 2012 white female who was admitted on the evening of 07/06/2018 at 38-3/7 weeks gestational age for hypertension in . She underwent medical induction for this. She did have an elevated blood pressures on last 2 evaluations in clinic in the 150s over 80s to 90s range. Decision was made to proceed with medical induction to effect delivery. Induction consisted of artificial rupture membranes with Pitocin augmentation added later. Patient made good progress at approximately 0100 hrs. had an epidural placed for analgesia. She progressed to complete cervical dilation by approximately 0340 hrs. on 07/06/2018. 2 contractions delivered a viable, grimes, male infant in a left occiput anterior position. The baby weighed 3203 g (7 pounds 1.9 ounces), had Apgars of 8 and 9 and length of 20.0 inches. There was nuchal cord 1 which was reduced easily over the baby's head. Dose was started immediately after the baby's head delivered and run at 500 mL per hour. This to facilitate increase uterine tone and decrease likelihood of bleeding. The cord blood was obtained. The Umbilical cord had 3 vessels The placenta delivered in a Florez presentation, appeared intact and complete and was discarded per patient desire. The Patient had a first-degree perineal laceration which was repaired with 3-0 Monocryl in a routine fashion. Epidural analgesia was used for anesthesia for the repair. Estimated blood loss was 100 mL. Patient plans to breast-feed. patient is doing well. Her vital signs and stable and blood pressures been within normal range. She has minimal lochia, is nursing well and was ambulated without problems she is voiding without concerns. She is ready for discharge home. Diagnosis: Stroke: No - Discharge Data Discharge Date: 07/07/18 Discharge Disposition: Home, Self-Care 01 Condition: Good - Patient Instructions Diet: Regular Diet as Tolerated (Nursing diet with increased calories and calcium as recommended) Activity: As Tolerated (No intercourse or tampons until bleeding resolves) Driving: May Drive Today Notify Provider of: Fever, Increased Pain, Swelling and Redness, Nausea and/or Vomiting - Discharge Plan Home Medications: Home Meds Vit Calc,Iron,Folic [ Vitamins] 1 tab PO DAILY 08/10/16 [ History] Acetaminophen [Tylenol] 650 mg PO Q4H PRN tablet 07/07/18 [Rx] Ibuprofen [Motrin] 600 mg PO Q4H PRN tablet 07/07/18 [Rx] - Discharge Summary/Plan Comment DC Time >30 min.: No Discharge Summary/Plan Comment: Discharge instructions: 1. Discharge home 2. Diet, activity and follow-up discussed with patient. Recommend nursing diet with increased calories and calcium. 3. Precautions given concern increased pain, bleeding, temperature, signs/ symptoms of DVT/PE. 4. Medications per home medication was printed, discussed with and given to the patient. 5. Return to clinic-Dr. Ahuja[facility] in 2 weeks. Diagnosis: Term -delivered Condition: Good - Patient Data Vitals - Most Recent: Last Vital Signs Temp 36.7 C 07/07/18 03:55 Pulse 78 07/07/18 03:55 Resp 14 07/07/18 03:55 BP 106/62 07/07/18 03:55 Pulse Ox 99 07/07/18 03:55 Weight - Most Recent: 68.674 kg Lab Results - Last 24 hrs: Laboratory Results - last 24 hr 07/05/18 Range/Units 19:34 RPR Non-reactive (NONREACTIVE) Med Orders - Current: Current Medications Acetaminophen (Tylenol) 650 mg PO Q4H PRN PRN Reason: mild pain or fever Benzocaine/Menthol (Dermoplast Pain Relief [place]) 0 gm TOP ASDIRECTED PRN PRN Reason: Perineal Comfort Measure Last Admin: 07/06/18 04:54 Dose: 1 applic Docusate Sodium (Colace) 100 mg PO BID PRN PRN Reason: Constipation Emollient Ointment (Lansinoh Hpa) 0 gm TOP ASDIRECTED PRN PRN Reason: Sore Nipples Ibuprofen (Motrin) 600 mg PO Q4H PRN PRN Reason: Mild pain or fever Last Admin: 07/07/18 01:03 Dose: 600 mg [place] (Tucks) 1 pad TOP ASDIRECTED PRN PRN Reason: Pain Last Admin: 07/06/18 04:54 Dose: 1 applic Discontinued Medications Diphenhydramine HCl (Benadryl) 25 mg IVPUSH Q6H PRN PRN Reason: Pruritis Ephedrine Sulfate (Ephedrine Sulfate) 5 mg IVPUSH ONETIME PRN PRN Reason: Hypotension Fentanyl (Sublimaze) 100 mcg IVPUSH ONETIME ONE Stop: 07/06/18 00:29 Fentanyl/Bupivacaine HCl (Fentanyl/Bupivacaine/Ns 2 Mcg-0.125% 100 Ml) 100 ml EPIDUR ASDIRECTED RICK Lactated Ringer's (Ringers, Lactated) 1,000 mls @ 100 mls/hr IV ASDIRECTED RICK Last Infusion: 07/06/18 03:59 Dose: 0 mls/hr Oxytocin/Lactated Ringer's (Pitocin In Lr 10 Units/1,000 Ml) 10 unit in 1,000 mls @ 12 mls/hr IV TITRATE RICK; Protocol Last Titration: 07/06/18 03:58 Dose: 500 mls/hr Oxytocin/Lactated Ringer's (Pitocin In Lr 10 Units/1,000 Ml) 10 unit in 1,000 mls @ 500 mls/hr IV .CONTINUOUS RICK Nalbuphine HCl (Nubain) 10 mg IVPUSH Q2H PRN PRN Reason: pain Ondansetron HCl (Zofran) 4 mg IVPUSH Q4H PRN PRN Reason: Nausea/Vomiting Sodium Chloride (Saline Flush) 10 ml FLUSH ASDIRECTED PRN PRN Reason: Keep Vein Open
[2018-07-07 15:33] VITALS: BP 110/65
== END 2018-07-07 14:30 | disposition home or self-care (01) | DRG 560 ==
LOC: JD.OB 03:58 → OBSVTOIN 07-06 03:58 → JD.OB 07-06 03:58
PROVIDERS: ADMIT Obstetrics & Gynecology; ATTEND Obstetrics & Gynecology
PROC: 10907ZC Drainage of Amniotic Fluid, Therapeutic from Products of Conception, Via Natural or Artificial Opening (ICD-10-PCS; principal; 2018-07-06)
PROC: 10E0XZZ Delivery of Products of Conception, External Approach (ICD-10-PCS; principal; 2018-07-06)
PROC: 0HQ9XZZ Repair Perineum Skin, External Approach (ICD-10-PCS; principal; 2018-07-06)
PROC: 6A550ZT Pheresis of Cord Blood Stem Cells, Single (ICD-10-PCS; principal; 2018-07-06)
PROC: 00HU33Z Insertion of Infusion Device into Spinal Canal, Percutaneous Approach (ICD-10-PCS; 2018-07-06)
PROC: 3E0R3BZ Introduction of Anesthetic Agent into Spinal Canal, Percutaneous Approach (ICD-10-PCS; 2018-07-06)
DX: O13.4 Gestational [pregnancy-induced] hypertension without significant proteinuria, complicating childbirth (principal); O69.81X0 Labor and delivery complicated by cord around neck, without compression, not applicable or unspecified; O70.0 First degree perineal laceration during delivery; Z3A.38 38 weeks gestation of pregnancy; Z37.0 Single live birth
CPT/HCPCS: 36415; 51702; 59025; 59409; 85027; 86592; A9270-GY; J2590; J3490; J7120